=== PATIENT | male | born 1985 | race Caucasian/White ===

== ENCOUNTER 2017-05-15 02:06 | Emergency (ER) | payer OTHER ==
[~2017-05-15] VITALS: Ht 170.2 cm; Wt 97.7 kg
[2017-05-15] MEDS ORDERED: PROVENTIL HFA6.7 GM IH (03:16)
[2017-05-15] MEDS ORDERED: SUDAFED 12-HOU120 MG PO (03:16)
[2017-05-15] MEDS ORDERED: HYCODAN SYRUP480 ML PO (03:16)
[2017-05-15 03:50] VITALS: BP 126/81
== END 2017-05-15 03:58 | disposition home or self-care (01) ==
LOC: EME 02:06
DX: J20.8 Acute bronchitis due to other specified organisms (principal); B34.9 Viral infection, unspecified; M79.1 Myalgia; F17.200 Nicotine dependence, unspecified, uncomplicated
CPT/HCPCS: 87651 90; 99281; 99284